=== PATIENT | female | born 1950 | race Native Hawaiian/Other Pacific Islander ===

== ENCOUNTER 2017-02-17 08:50 | Outpatient (CLI) | payer BC | END 2017-02-17 19:15 | disposition home or self-care (01) | LOC: MAMMO 08:50 | DX: Z12.31 Encounter for screening mammogram for malignant neoplasm of breast (principal) ==

== ENCOUNTER 2018-02-25 08:43 | Outpatient (CLI) | payer OTHER, BC | END 2018-02-25 19:18 | disposition home or self-care (01) | LOC: MAMMO 08:43 | DX: Z12.31 Encounter for screening mammogram for malignant neoplasm of breast (principal) ==

== ENCOUNTER 2019-03-08 13:15 | Outpatient (CLI) | payer OTHER, BC | END 2019-03-08 21:52 | disposition home or self-care (01) | LOC: MAMMO 13:15 | DX: Z12.31 Encounter for screening mammogram for malignant neoplasm of breast (principal) ==

== ENCOUNTER 2021-09-04 10:08 | Outpatient (CLI) | payer BC | END 2021-09-04 20:37 | disposition home or self-care (01) | LOC: MAMMO 10:08 | PROVIDERS: ATTEND Internal Medicine | DX: Z12.31 Encounter for screening mammogram for malignant neoplasm of breast (principal) ==

== ENCOUNTER 2021-09-21 09:45 | Outpatient (CLI) | payer BC | END 2021-09-21 20:52 | disposition home or self-care (01) | LOC: RAD 09:45 | PROVIDERS: ATTEND Internal Medicine | DX: Z78.0 Asymptomatic menopausal state (principal) ==